=== PATIENT | female | born 1950 | race Caucasian/White ===

== ENCOUNTER 2022-05-22 08:08 | Inpatient (IN) | payer MEDICARE, MEDICAID ==
[2022-05-22] VITALS (9 sets, daily range): BP systolic 109–144; BP diastolic 61–82
[~2022-05-22] VITALS: Ht 152.4 cm; Wt 73.3 kg
[~2022-05-22 08:08] MED LIST: ATRO2DRO BOTHEYE; BIMA2.5D4 LEFTEYE; BRIN8DRO OP; CHLO50TA PO; METF-415 PO; PRED5DRO7 RIGHTEYE; [UNRECOGNIZED DRUG - OTHER] PO
[2022-05-22] MEDS ORDERED: ATOR40TA70 PO (08:32)
[2022-05-22] MEDS ORDERED: ASPI-1497 PO (08:33)
[2022-05-22] MEDS ORDERED: PHENYLEPHRINE 100MCG/ML 10ML VIAL (CATH LAB) ONE (09:00)
[2022-05-22] MEDS ORDERED: NITROGLYCERIN 50MCG/ML 10ML VIAL (CATH LAB) IV ONE (09:00)
[2022-05-22] MEDS ORDERED: NICARDIPINE 100MCG/ML 10ML VIAL (CATH LAB) IV ONE (09:00)
[2022-05-22] MEDS ORDERED: FERR325T6 MT (10:00)
[2022-05-22] MEDS ORDERED: MV-M1TAB19 PO (10:00)
[2022-05-22] MEDS ORDERED: COR12 MT (10:00)
[2022-05-22] MEDS ORDERED: SACU1TAB7 MT (10:00)
[2022-05-22] MEDS ORDERED: CYAN10003 SL (10:00)
[2022-05-22] MEDS ORDERED: SITA100T11 MT (10:00)
[2022-05-22] MEDS ORDERED: FURO40TA5 MT (10:00)
[2022-05-22] MEDS ORDERED: HYDR-4134 PO (10:00)
[2022-05-22] MEDS ORDERED: CLOP75TA33 MT (10:00)
[2022-05-22] MEDS ORDERED: LEVO50TA8 MT (10:00)
[2022-05-22] MEDS ORDERED: LIDOCAINE HCL/PF 1% 10 MG/ML 5ML VIAL ONE ×2 (10:33→11:28)
[2022-05-22] MEDS ORDERED: IODIXANOL 320MG/ML 100 ML BOTTLE IV ONE (10:33)
[2022-05-22] MEDS ORDERED: FENTANYL CITRATE/PF 50MCG/ML 2ML VIAL ONE (10:42)
[2022-05-22] MEDS ORDERED: MIDAZOLAM HCL 2 MG/2 ML VIAL ONE (10:42)
[2022-05-22] MEDS ORDERED: HEPARIN 1000 UNITS/ML 10ML ONE ×2 (10:43→11:39)
[2022-05-22] MEDS ORDERED: ATROPINE SULFATE 1MG/10ML SYR ONE (11:40)
[2022-05-22] MEDS ORDERED: CLOPIDOGREL 75MG TABLET ONE (12:13)
[2022-05-22] MEDS ORDERED: ASPIRIN 81MG TABLET ONE (12:14)
[2022-05-22] MEDS ORDERED: ACETAMINOPHEN 325MG TABLET PO PRN (12:45)
[2022-05-22] MEDS ORDERED: ONDANSETRON HCL 4MG/2ML INJ IV PRN (12:45)
[2022-05-22] MEDS ORDERED: ATROPINE SULFATE 1MG/10ML SYR IV PRN (12:45)
[2022-05-22] MEDS ORDERED: ZOLPIDEM TARTRATE 5MG TABLET PO PRN (14:30)
[2022-05-22] MEDS ORDERED: MORPHINE SULFATE 2 MG/ML CPJ (NOT FOR IM USE) IV PRN (23:00)
[2022-05-22] MEDS: NITROGLYCERIN OINT 1GM/INCH UDPKT TD SCH (23:08)
[2022-05-23] VITALS: BP 124/53
[2022-05-23] MEDS ORDERED: PNEUMOCOCCAL 23-VAL P-SAC VAC 0.5 ML IM ONE (02:15)
[2022-05-23 04:00] VITALS: BP 141/83
[2022-05-23] MEDS: NITROGLYCERIN OINT 1GM/INCH UDPKT TD SCH ×2 (05:30→14:00)
[2022-05-23 06:21] LABS: BASOPHILS % 1.1 % (0.0-2.0); EOSINOPHILS % 1.2 % (0.0-5.0); HEMATOCRIT. 28.5 % (36.0-48.0); HEMOGLOBIN. 9.5 g/dL (12.0-16.0); LYMPHOCYTES % 20.7 % (20.0-50.0); MEAN CORPUSCULAR HEMOGLOBIN 30.3 pg (28.0-32.0); MEAN CORPUSCULAR VOLUME 91.3 fL (81.0-99.0); MEAN PLATELET VOLUME 9.5 fl (7.4-10.4); MONOCYTES % 7.5 % (2.0-8.0); NEUTROPHILS % 69.5 % (40.0-76.0); PLATELET 209 x1000/uL (130-400); RED BLOOD CELL COUNT 3.12 mill/uL (4.2-5.4); RED CELL DISTRIBUTION WIDTH 13.5 % (11.6-14.6)
[2022-05-23 08:00] VITALS: BP 146/76
[2022-05-23] MEDS ORDERED: ASPIRIN 325MG TABLET PO SCH (09:00)
[2022-05-23] MEDS ORDERED: CLOPIDOGREL 75MG TABLET PO SCH (09:00)
[2022-05-23] MEDS ORDERED: ASPIRIN 81MG EC TABLET PO SCH (09:00)
[2022-05-23 10:00] VITALS: BP 146/46
[2022-05-23 11:39] VITALS: BP 146/46
[2022-05-23 12:00] VITALS: BP 145/72
== END 2022-05-23 15:45 | disposition home or self-care (01) | DRG 247 ==
LOC: CCL 08:08 → 5EST 13:15
PROVIDERS: ADMIT Specialist; ATTEND Specialist
PROC: 4A023N7 Measurement of Cardiac Sampling and Pressure, Left Heart, Percutaneous Approach (ICD-10-PCS; principal; 2022-05-22)
PROC: 027034Z Dilation of Coronary Artery, One Artery with Drug-eluting Intraluminal Device, Percutaneous Approach (ICD-10-PCS; 2022-05-22)
PROC: B211YZZ Fluoroscopy of Multiple Coronary Arteries using Other Contrast (ICD-10-PCS; 2022-05-22)
DX: I20.0 Unstable angina (principal); I13.0 Hypertensive heart and chronic kidney disease with heart failure and stage 1 through stage 4 chronic kidney disease, or unspecified chronic kidney disease; I50.22 Chronic systolic (congestive) heart failure; E78.5 Hyperlipidemia, unspecified; E03.9 Hypothyroidism, unspecified; Z20.822 Contact with and (suspected) exposure to COVID-19; I08.1 Rheumatic disorders of both mitral and tricuspid valves; I25.5 Ischemic cardiomyopathy; N18.9 Chronic kidney disease, unspecified; E11.22 Type 2 diabetes mellitus with diabetic chronic kidney disease; I25.2 Old myocardial infarction; Z79.02 Long term (current) use of antithrombotics/antiplatelets; Z79.4 Long term (current) use of insulin; Z79.84 Long term (current) use of oral hypoglycemic drugs; Z79.899 Other long term (current) drug therapy; Z95.810 Presence of automatic (implantable) cardiac defibrillator
CPT/HCPCS: 36415; 80048; 85025; 85347; 87426; 90732; 92928; 93005; 93458; C1760; C1769; C1874; C1887; C1893; C9803; J0461; J1644; J2250; J2270; J2370; J3010; J3490; Q9967